=== PATIENT | male | born 1945 | race Caucasian/White ===

== ENCOUNTER 2022-01-16 13:40 | Emergency (ER) | payer OTHER ==
[~2022-01-16] VITALS: Ht 182.9 cm; Wt 108.9 kg
[2022-01-16 14:16] LABS: HEMATOCRIT 41.5 % (36.7-47.1); MEAN CORPUSCULAR HEMOGLOBIN 29.8 uug (23.8-33.4); MEAN CORPUSCULAR VOLUME 90.1 fL (73.0-96.2); PLATELET COUNT (AUTO) 241 K/uL (152-348)
[2022-01-16 14:43] LABS: ALANINE AMINOTRANSFERASE 30 U/L (16-63); ALKALINE PHOSPHATASE 139 U/L (50-136); ASPARTATE AMINOTRANSFERASE 43 U/L (15-37); BILIRUBIN,DIRECT 0.5 mg/dL (0.0-0.2); BILIRUBIN,TOTAL 0.9 mg/dL (0.2-1.0); CARBON DIOXIDE 26 mmol/L (21-32); CHLORIDE 99 mmol/L (98-107); CREATININE 1.7 mg/dL (0.6-1.3); GLUCOSE 75 mg/dL (74-106); POTASSIUM 3.9 mmol/L (3.5-5.1); TOTAL PROTEIN, SERUM 7.3 g/dL (6.4-8.2); UREA NITROGEN, BLOOD 43 mg/dL (7-18)
--- NOTE | 2022-01-16 16:00 | NUR ---
Pt resting in gurney with NAD noted, at bedside.
--- NOTE | 2022-01-16 16:45 | NUR ---
Pt is a [employer] member and [facility] was contacted by ER registration.
--- NOTE | 2022-01-16 17:26 | NUR ---
Per Dr. [place] he spoke with [place] physician via telephone and pt will be transfered to [place], [facility] to call back with further transfer information. Pt/ updated on plan of care.
[2022-01-16] MEDS ORDERED: VANCOMYCIN IV 1,000 MG in IV DEXTROSE 5% 250 ML IV ONE (17:30)
[2022-01-16] MEDS ORDERED: PIPERACILLIN SODIUM/TAZOBACTAM 3.375 G in IV DEXTROSE 5% 50 ML IV ONE (17:30)
[2022-01-16] MEDS ORDERED: VANCOMYCIN IV 200 ML ONE (17:42)
[2022-01-16] MEDS ORDERED: PIPERACILLIN/TAZOBACTAM/D5W 50 ML IV ONE (17:43)
--- NOTE | 2022-01-16 20:57 | NUR ---
[facility] from [facility] called with transfer info. Patient will be going to [facility] room 4015B. Call for report is . ETA of [facility] ambulance is [id number]. Dr [place] is accepting .
--- NOTE | 2022-01-16 21:38 | NUR ---
call placed to [facility] 4th floor to give report for pt being transfered, [facility] transport eta 2145. put on hold for approx 15 min. spoke with Kelly arriaga RN accepting report bc RN was busy in a procedure . Thorough report given using SBAR method. Allk questions answered. Pt is stable, PE WNL except for rt diabetic foot. Pt just had large BM in a diaper. Pericare provided, diaper changed, pt clean and dry and placed in pos of comfort. Current VS 134/69, 64bpm, 126rpm, 93% RA, Pt refusing O2, no s/sx of distress present. Pt is loaded up ready to be picked up, all belongings accounted for.
--- NOTE | 2022-01-16 21:51 | NUR ---
Pt and pt awaiting transport. VSS, PE WNLK. NAD noted.
--- NOTE | 2022-01-16 22:20 | NUR ---
Transport just arrived to [facility] pt and tranport to [facility]. accucheck performed and B, 4oz of OJ given immediately. Last BP 108/55, 97% on 2LNC and climbing. 16 rpm, 72bpm. Pt loaded up onto stretcher without difficulty, all belongings accounted for. Pt afebrile, SR with occ PVCs on monitor, oxygenating and perfusing well. No s/sx of distress noted. AAOx2, has periods of incoherent speech that does not make sense and does not pertain to anything. Pt is most likely starting to get demented or there is an underlying psych issue. Pt otherwise fine and stable and good to go. No s/sx of distress and no A nad present.
--- NOTE | 2022-01-16 23:20 | NUR ---
ESTRELLA handed me DC instuctions for pt and said that he is clear to return to facility and to arrange transport. Scribt was given for Nani and told to follow up with Neurology within the next day. Pt is ready to be picked up, [facility] will be sending a reg van to [facility] pt, all belongings accounted for. VSS, PE WNL, NAD. NSR without ectopy.
== END 2022-01-16 22:40 | disposition short-term general hospital (02) ==
LOC: ER 13:40
DX: S91.301A Unspecified open wound, right foot, initial encounter (principal); E11.621 Type 2 diabetes mellitus with foot ulcer; Z20.822 Contact with and (suspected) exposure to COVID-19; X58.XXXA Exposure to other specified factors, initial encounter; Y93.89 Activity, other specified; Y92.89 Other specified places as the place of occurrence of the external cause; Y99.8 Other external cause status
CPT/HCPCS: 36415; 73630; 80048; 80076; 82962; 83605; 84484; 85025; 85651; 87040 ×2; 87426; 96365; 96367; 99285; J2543; J3370; A4663